=== PATIENT | female | born 1945 | race Caucasian/White ===

== ENCOUNTER 2019-04-29 16:19 | Outpatient (CLI) | payer BC ==
--- NOTE | 2019-04-29 17:01 | RAD ---
EXAM: 3 views of the right ankle HISTORY: Ankle pain for one week COMPARISON: None FINDINGS: 3 views of the right ankle shows no evidence of acute fracture or dislocation. Moderate lat eral soft tissue swelling is seen. No degenerative changes are present. Small calcaneal enthesophytes are incidentally seen. IMPRESSION: No evidence of acute osseous abnormality.
--- NOTE | 2019-04-29 17:05 | RAD ---
EXAM: 3 views of the right foot HISTORY: Foot pain for one week COMPARISON: None FINDINGS: 3 views of the right foot shows no evidence of acute fracture or dislocation. No soft tissu e swelling is seen. There is fusion of the PIP joint of the second toe. No degenerative changes are present. Calcaneal enthesophytes are incidentally seen. IMPRESSION: No evidence of acute osseous abnormality.
== END 2019-04-29 16:20 | disposition home or self-care (01) ==
LOC: SCSRAD 16:19
PROVIDERS: ATTEND Family Medicine
DX: M25.571 Pain in right ankle and joints of right foot (principal); M79.671 Pain in right foot

== ENCOUNTER 2020-05-30 10:35 | Emergency (ER) | payer BC ==
[2020-05-30 11:35] LABS: #Basophils 0.1 thou/uL (0.0-0.2); #Eosinphils 0.1 thou/uL (0.0-0.7); #Lymphocytes 1.6 thou/uL (1.20-3.40); #Monocytes 0.7 thou/uL (0.11-0.59); #Neutrophils 3.9 thou/uL (1.40-6.50); %Basophils 0.8 % (0.0-1.0); %Eosinophils 1.8 % (0.0-10.0); %Lymphocytes 24.9 % (21.0-51.0); %Monocytes 10.5 % (0.0-10.0); Hemoglobin 14.6 g/dL (12.0-16.0); Mean Corpuscular HGB CONC 34.3 g/dL (32.0-36.0); Mean Corpuscular Volume 93.3 fL (78.0-98.0); Mean Platelet Volume 9.2 fL (7.4-10.4); Platelet Count 239 thou/uL (130-400); RBC Distribution Width 11.7 % (11.5-14.5); Red Blood Cell (RBC) Count 4.57 mill/uL (4.20-5.40); White Blood Cell (WBC) Count 6.4 thou/uL (4.8-10.8)
[2020-05-30 11:56] LABS: ALT (SGPT) 21 U/L (8-55); AST (SGOT) 23 U/L (5-34); Albumin 4.4 g/dL (3.4-4.8); Alkaline Phosphatase 62 U/L (40-110); Anion Gap 14 mmol/L (10-20); BUN (Urea Nitrogen) 16 mg/dL (9.8-20.1); Bilirubin, Total 0.8 mg/dL (0.2-1.2); Calc. Creatinine Clearance 0 mL/min (70-130); Calcium 10.5 mg/dL (7.8-10.44); Carbon Dioxide 26 mmol/L (23-31); Chloride 105 mmol/L (98-107); Globulin 2.6 g/dL (2.4-3.5); Glucose 111 mg/dL (83-110); Potassium 4.5 mmol/L (3.5-5.1); Sodium 140 mmol/L (136-145)
[2020-05-30] MEDS ORDERED: Aspirin Chewable 81 MG TAB ONE (12:30)
== END 2020-05-30 12:52 | disposition home or self-care (01) ==
LOC: ERS 10:35
DX: G45.9 Transient cerebral ischemic attack, unspecified (principal); H53.8 Other visual disturbances; I10 Essential (primary) hypertension; E11.9 Type 2 diabetes mellitus without complications
CPT/HCPCS: 70450; 71045; 80053; 84484; 85025; 93005

== ENCOUNTER 2021-01-08 10:35 | Outpatient (CLI) | payer BC | END 2021-01-08 10:36 | disposition home or self-care (01) | LOC: CTENTCT 10:35 | PROVIDERS: ATTEND Specialist | DX: J32.8 Other chronic sinusitis (principal) | CPT/HCPCS: 70486 ==

== ENCOUNTER 2023-01-31 13:03 | Outpatient (CLI) | payer MEDICARE, BC | END 2023-01-31 13:04 | disposition home or self-care (01) | LOC: SCSRAD 13:03 | PROVIDERS: ATTEND Family Medicine | DX: J40 Bronchitis, not specified as acute or chronic (principal) | CPT/HCPCS: 71046 ==

== ENCOUNTER 2023-02-17 11:46 | Outpatient (CLI) | payer MEDICARE, BC | END 2023-02-17 11:47 | disposition home or self-care (01) | LOC: RAD 11:46 | PROVIDERS: ATTEND Physician Assistant | DX: R06.02 Shortness of breath (principal) | CPT/HCPCS: 71046 ==